=== PATIENT | female | born 1980 | race African-American/Black ===

== ENCOUNTER 2017-06-25 08:18 | Emergency (ER) | payer OTHER, SELFPAY ==
[2017-06-25 08:47] LABS: #Basophils 0.1 thou/uL (0.0-0.2); #Eosinphils 0.3 thou/uL (0.0-0.7); #Lymphocytes 2.4 thou/uL (1.20-3.40); #Monocytes 0.6 thou/uL (0.11-0.59); #Neutrophils 6.6 thou/uL (1.40-6.50); %Basophils 0.8 % (0.0-1.0); %Lymphocytes 24.2 % (21.0-51.0); %Monocytes 6.1 % (0.0-10.0); %Neutrophils 65.9 % (42.0-75.0); Mean Corpuscular HGB CONC 32.1 g/dL (32.0-36.0); Mean Corpuscular Hemoglobin 31.9 pg (27.0-31.0); Mean Corpuscular Volume 99.2 fl (81.0-99.0); Mean Platelet Volume 6.8 fL (7.4-10.4); Platelet Count 355 thou/uL (130-400); RBC Distribution Width 11.5 % (11.5-14.5); Red Blood Cell (RBC) Count 3.78 mill/uL (4.20-5.40)
[2017-06-25] MEDS ORDERED: Ketorolac Tromethamine 30 MG/ML VIAL ONE (08:53)
[2017-06-25 09:02] LABS: BHCG - Serum Negative (NEGATIVE); Pregs Control Bar Appear? YES (CONTROL BAR)
--- NOTE | 2017-06-25 09:02 | RAD ---
SINGLE VIEW OF THE CHEST: History: Midsternal chest pain, frontal headache for two days. FINDINGS: Single view of the chest shows a normal sized cardiomediastinal silhouette. There is no evidence of c onsolidation, mass, or pleural effusion. The bones are unremarkable. IMPRESSION: No evidence of acute cardiopulmonary disease. POS: [facility]
[2017-06-25 09:03] LABS: Pregs Control Background? CLEAR/WHITE (CLR/WHITE)
[2017-06-25 09:15] LABS: ALT (SGPT) 8 U/L (8-55); AST (SGOT) 9 U/L (5-34); Albumin 4.4 g/dL (3.5-5.0); Alkaline Phosphatase 81 U/L (40-150); Anion Gap 10 mmol/L (10-20); BUN (Urea Nitrogen) 11 mg/dL (7.0-18.7); Bilirubin, Total 0.4 mg/dL (0.2-1.2); CK (CPK) 112 U/L (29-168); Calc. Creatinine Clearance 0 mL/min (70-130); Calcium 9.6 mg/dL (7.8-10.44); Carbon Dioxide 24 mmol/L (22-29); Chloride 106 mmol/L (98-107); Estimated GFR-MDRD Greater than 90; Globulin 3.4 g/dL (2.4-3.5); Glucose 97 mg/dL (70-105); Lipase 24 U/L (8-78); Potassium 3.9 mmol/L (3.5-5.1); Protein, Total 7.8 g/dL (6.0-8.3); Sodium 136 mmol/L (136-145)
[2017-06-25 09:19] LABS: CKMB 1.1 ng/mL (0-6.6); Troponin I Less than 0.010 ng/mL (< 0.028)
--- NOTE | 2017-06-25 10:08 | CT ---
CT ANGIOGRAM OF THE CHEST: Date: 06-25-17 Comparison: None. History: Chest pain, assess for pulmonary embolism. Technique: Serial axial CT imaging is obtained at 2.5 mm intervals from thoracic inlet through upper abdomen with IV contrast using a CT angiogram protocol. Coronal and oblique sagittal 3D reformatted i maging obtained. FINDINGS: Imaged upper abdomen demonstrates splenic granulomata. The upper abdomen appears grossly unremarkable otherwise. There is no pleural, pericardial, or mediastinal fluid present. There is no filling defect identified within the main pulmonary trunk or main pulmonary artery. The lobar segmental and subsegmental pulmonary arteries demonstrate no evidence for filling defect. There is no pneumothorax noted. There is no endobronchial lesion identified. There is no axillary lymph adenopathy noted. No enlarged hilar or mediastinal nodes are seen. There is no worrisome lytic or blastic bone lesion identified. No discrete pulmonary parenchymal mass lesion or nodule seen. IMPRESSION: 1. No evidence for acute pulmonary embolism. POS: [facility]
[2017-06-25] MEDS ORDERED: ISOVUE-370 76%-LOCM 1 ML ONE (12:41)
== END 2017-06-25 10:30 | disposition home or self-care (01) ==
LOC: ERS 08:18
DX: J01.90 Acute sinusitis, unspecified (principal); F17.210 Nicotine dependence, cigarettes, uncomplicated
CPT/HCPCS: 71045; 71275; 80053; 82550; 82553; 83690; 84484; 84703; 85025; 85379; 93005; 96374; J1885

== ENCOUNTER 2017-07-19 05:16 | Emergency (ER) | payer SELFPAY ==
--- NOTE | 2017-07-19 08:48 | RAD ---
PA AND LATERAL VIEWS OF CHEST: Date: 07/19/17 HISTORY: Cough. FINDINGS: Comparison made with exam of 06/25/17. The heart size is borderline. The lungs are expanded without focal areas of consolidation, pneumothor ax, silviano pulmonary edema, or pleural effusions. No acute osseous abnormalities are seen. IMPRESSION: No acute process. POS: [facility]
== END 2017-07-19 07:27 | disposition home or self-care (01) ==
LOC: ERS 05:16
DX: J06.9 Acute upper respiratory infection, unspecified (principal); F17.210 Nicotine dependence, cigarettes, uncomplicated
CPT/HCPCS: 71046; 87804

== ENCOUNTER 2018-02-23 00:31 | Emergency (ER) | payer SELFPAY ==
[2018-02-23] MEDS ORDERED: Proparacaine 0.5% Opth 15 ML BOT ONE (00:51)
[2018-02-23] MEDS ORDERED: Fluorescein Opthalmic Strip ONE (00:51)
== END 2018-02-23 01:12 | disposition home or self-care (01) ==
LOC: ERS 00:31
DX: H11.002 Unspecified pterygium of left eye (principal); Z71.6 Tobacco abuse counseling; I10 Essential (primary) hypertension; F17.210 Nicotine dependence, cigarettes, uncomplicated
CPT/HCPCS: 99406

== ENCOUNTER 2018-03-12 21:59 | Emergency (ER) | payer SELFPAY ==
--- NOTE | 2018-03-12 23:20 | RAD ---
RIGHT WRIST THREE VIEWS: 03/12/18 HISTORY: Right wrist pain. FINDINGS: Scaphoid waist is intact. Small well corticated ossific avulsion adjacent to the ulnar styloid may re present an old injury. No acute fracture or dislocation. IMPRESSION: No acute osseous abnormalities are demonstrated. POS: [facility]
--- NOTE | 2018-03-12 23:21 | RAD ---
RIGHT HAND THREE VIEWS: 03/12/18 HISTORY: Right hand pain. FINDINGS: Fingers are held in persistent flexion on all images, limiting evaluation. Joint spaces are preserved . No acute fracture, dislocation, or aggressive osseous erosions. IMPRESSION: No acute osseous abnormalities are demonstrated. POS: [facility]
== END 2018-03-13 00:38 | disposition home or self-care (01) ==
LOC: ERS 21:59
DX: S63.501A Unspecified sprain of right wrist, initial encounter (principal); I10 Essential (primary) hypertension; F17.210 Nicotine dependence, cigarettes, uncomplicated; X50.1XXA Overexertion from prolonged static or awkward postures, initial encounter

== ENCOUNTER 2019-05-29 17:55 | Emergency (ER) | payer OTHER, SELFPAY ==
--- NOTE | 2019-05-29 18:28 | RAD ---
RIGHT KNEE FOUR VIEWS: 05/29/19 HISTORY: Right knee pain and swelling, fall yesterday. FINDINGS/IMPRESSION: There are postop changes of an ACL repair. Joint effusion is present. No acute fracture or dislocatio n is identified. There is chondrocalcinosis. POS: [facility]
== END 2019-05-29 19:18 | disposition home or self-care (01) ==
LOC: ERS 17:55
DX: M23.91 Unspecified internal derangement of right knee (principal); I10 Essential (primary) hypertension; Z87.891 Personal history of nicotine dependence; W01.0XXA Fall on same level from slipping, tripping and stumbling without subsequent striking against object, initial encounter

== ENCOUNTER 2019-09-06 08:52 | Emergency (ER) | payer SELFPAY ==
[2019-09-06] MEDS ORDERED: Ibuprofen 200 MG TAB ONE (09:08)
--- NOTE | 2019-09-06 11:29 | RAD ---
RIGHT KNEE 4 VIEWS: Date: 09/06/2019 HISTORY: Injury. COMPARISON: 05/29/2019. FINDINGS: Prior ACL repair. Fairly markedly distended suprapatellar recess region, evidence for large joint eff usion, with some progression from the prior study. No evidence for acute fracture or dislocation. IMPRESSION: Evidence for distended suprapatellar recess and associated joint effusion. Postop anterior cruciate l igament repair changes. No fracture or dislocation. If there is clinical concern for internal derangement or replaced ACL tendon disruption, nonemergent follow-up MRI is recommended. POS: [facility]
== END 2019-09-06 11:02 | disposition home or self-care (01) ==
LOC: ERS 08:52
DX: M23.91 Unspecified internal derangement of right knee (principal); I10 Essential (primary) hypertension; F17.210 Nicotine dependence, cigarettes, uncomplicated

== ENCOUNTER 2020-10-16 08:05 | Emergency (ER) | payer SELFPAY ==
[2020-10-16 09:26] LABS: #Basophils 0.1 thou/uL (0.0-0.2); #Eosinphils 0.2 thou/uL (0.0-0.7); #Lymphocytes 4.1 thou/uL (1.20-3.40); #Monocytes 1.1 thou/uL (0.11-0.59); #Neutrophils 8.5 thou/uL (1.40-6.50); %Basophils 0.6 % (0.0-1.0); %Eosinophils 1.3 % (0.0-10.0); %Lymphocytes 29.5 % (21.0-51.0); %Monocytes 7.8 % (0.0-10.0); %Neutrophils 60.8 % (42.0-75.0); Hemoglobin 12.8 g/dL (12.0-16.0); Mean Corpuscular Hemoglobin 32.1 pg (27.0-31.0); Mean Corpuscular Volume 97.4 fL (78.0-98.0); Mean Platelet Volume 7.5 fL (7.4-10.4); Platelet Count 313 thou/uL (130-400); RBC Distribution Width 12.2 % (11.5-14.5); Red Blood Cell (RBC) Count 3.98 mill/uL (4.20-5.40)
[2020-10-16 09:44] LABS: ALT (SGPT) 17 U/L (8-55); AST (SGOT) 12 U/L (5-34); Albumin 4.1 g/dL (3.5-5.0); Alkaline Phosphatase 71 U/L (40-110); Anion Gap 14 mmol/L (10-20); BUN (Urea Nitrogen) 9 mg/dL (7.0-18.7); Bilirubin, Total 0.3 mg/dL (0.2-1.2); Calc. Creatinine Clearance 0 mL/min (70-130); Calcium 9.5 mg/dL (7.8-10.44); Carbon Dioxide 22 mmol/L (22-29); Chloride 105 mmol/L (98-107); Globulin 3.1 g/dL (2.4-3.5); Glucose 99 mg/dL (70-105); Potassium 3.5 mmol/L (3.5-5.1); Protein, Total 7.2 g/dL (6.0-8.3); Sodium 137 mmol/L (136-145)
[2020-10-16 14:13] LABS: SARS-CoV-2 PCR by NAA Not Detected (NotDetected)
== END 2020-10-16 10:10 | disposition home or self-care (01) ==
LOC: ERS 08:05
DX: J06.9 Acute upper respiratory infection, unspecified (principal); Z20.822 Contact with and (suspected) exposure to COVID-19; Z79.899 Other long term (current) drug therapy; I10 Essential (primary) hypertension; F17.210 Nicotine dependence, cigarettes, uncomplicated
CPT/HCPCS: 36415; 71045; 80053; 83880; 84484; 85025; 87635; 93005; U0003; U0005

== ENCOUNTER 2020-11-24 14:38 | Emergency (ER) | payer SELFPAY ==
[2020-11-24] MEDS ORDERED: Ketorolac Tromethamine 30 MG/ML VIAL ONE (15:12)
[2020-11-24] MEDS ORDERED: Metoclopramide HCl 10 MG/2 ML VIAL ONE (15:12)
[2020-11-24] MEDS ORDERED: Metoclopramide 10 MG/10 ML UDCUP ONE (15:12)
[2020-11-24] MEDS ORDERED: Dexamethasone 10 MG/ML VIAL ONE (15:12)
[2020-11-24 15:35] LABS: #Basophils 0.1 thou/uL (0.0-0.2); #Eosinphils 0.4 thou/uL (0.0-0.7); #Lymphocytes 3.5 thou/uL (1.20-3.40); #Monocytes 0.8 thou/uL (0.11-0.59); #Neutrophils 6.7 thou/uL (1.40-6.50); %Basophils 0.8 % (0.0-1.0); %Eosinophils 3.1 % (0.0-10.0); %Lymphocytes 30.5 % (21.0-51.0); %Monocytes 6.8 % (0.0-10.0); %Neutrophils 58.8 % (42.0-75.0); Hemoglobin 12.6 g/dL (12.0-16.0); Mean Corpuscular HGB CONC 33.2 g/dL (32.0-36.0); Mean Corpuscular Hemoglobin 32.7 pg (27.0-31.0); Mean Corpuscular Volume 98.4 fL (78.0-98.0); Mean Platelet Volume 7.7 fL (7.4-10.4); Platelet Count 338 thou/uL (130-400); RBC Distribution Width 11.8 % (11.5-14.5); Red Blood Cell (RBC) Count 3.87 mill/uL (4.20-5.40); White Blood Cell (WBC) Count 11.4 thou/uL (4.8-10.8)
[2020-11-24 15:55] LABS: ALT (SGPT) 15 U/L (8-55); AST (SGOT) 13 U/L (5-34); Albumin 4.1 g/dL (3.5-5.0); Alkaline Phosphatase 76 U/L (40-110); Anion Gap 15 mmol/L (10-20); BUN (Urea Nitrogen) 10 mg/dL (7.0-18.7); Bilirubin, Total 0.2 mg/dL (0.2-1.2); Calc. Creatinine Clearance 0 mL/min (70-130); Calcium 9.3 mg/dL (7.8-10.44); Carbon Dioxide 23 mmol/L (22-29); Chloride 103 mmol/L (98-107); Globulin 3.5 g/dL (2.4-3.5); Glucose 123 mg/dL (70-105); Potassium 3.7 mmol/L (3.5-5.1); Protein, Total 7.6 g/dL (6.0-8.3); Sodium 137 mmol/L (136-145)
== END 2020-11-24 16:50 | disposition home or self-care (01) ==
LOC: ERS 14:38
DX: G43.909 Migraine, unspecified, not intractable, without status migrainosus (principal); I10 Essential (primary) hypertension; F17.210 Nicotine dependence, cigarettes, uncomplicated; Z79.899 Other long term (current) drug therapy
CPT/HCPCS: 80053; 84484; 85025; 93005; 96365; 96375; J1100; J1885; J2765

== ENCOUNTER 2022-05-24 09:25 | Emergency (ER) | payer SELFPAY ==
[2022-05-24] MEDS ORDERED: Ketorolac Tromethamine 10 MG TAB PO SCH (11:00)
[2022-05-24] MEDS ORDERED: Prochlorperazine Maleate 5 MG TAB PO SCH (11:00)
[2022-05-24 11:11] LABS: #Eosinphils 0.3 thou/uL (0.0-0.7); #Lymphocytes 3.4 thou/uL (1.20-3.40); #Monocytes 0.8 thou/uL (0.11-0.59); #Neutrophils 7.1 thou/uL (1.40-6.50); %Basophils 0.3 % (0.0-1.0); %Eosinophils 2.7 % (0.0-10.0); %Lymphocytes 29.4 % (21.0-51.0); %Monocytes 6.8 % (0.0-10.0); %Neutrophils 60.8 % (42.0-75.0); Hemoglobin 12.9 g/dL (12.0-16.0); Mean Corpuscular HGB CONC 33.5 g/dL (32.0-36.0); Mean Corpuscular Hemoglobin 33.2 pg (27.0-31.0); Mean Corpuscular Volume 99.1 fl (78.0-98.0); Mean Platelet Volume 7.3 fL (7.4-10.4); Platelet Count 361 10x3/uL (130-400); RBC Distribution Width 12.2 % (11.5-14.5); Red Blood Cell (RBC) Count 3.88 mill/uL (4.20-5.40); White Blood Cell (WBC) Count 11.7 10x3/uL (4.8-10.8)
[2022-05-24 11:31] LABS: ALT (SGPT) 11 U/L (8-55); AST (SGOT) 12 U/L (5-34); Albumin 4.3 g/dL (3.5-5.0); Alkaline Phosphatase 83 U/L (40-110); Anion Gap 11 mmol/L (10-20); BUN (Urea Nitrogen) 7 mg/dL (7.0-18.7); Bilirubin, Total 0.4 mg/dL (0.2-1.2); Calc. Creatinine Clearance 0 mL/min (70-130); Calcium 9.2 mg/dL (7.8-10.44); Carbon Dioxide 26 mmol/L (22-29); Chloride 105 mmol/L (98-107); Estimated GFR 92; Globulin 3.1 g/dL (2.4-3.5); Glucose 92 mg/dL (70-105); Magnesium 1.9 mg/dL (1.6-2.6); Potassium 3.6 mmol/L (3.5-5.1); Protein, Total 7.4 g/dL (6.0-8.3)
[2022-05-24 11:36] LABS: Sodium 138 mmol/L (136-145)
[2022-05-24] MEDS ORDERED: diphenhydrAMINE 50 MG/ML VIAL ONE (12:02)
[2022-05-24] MEDS ORDERED: Ketorolac Tromethamine 30 MG/ML VIAL ONE (12:02)
[2022-05-24] MEDS ORDERED: Metoclopramide HCl 10 MG/2 ML VIAL ONE (12:02)
== END 2022-05-24 14:16 | disposition home or self-care (01) ==
LOC: ERS 09:25
DX: R51.9 Headache, unspecified (principal); R07.89 Other chest pain; I10 Essential (primary) hypertension; Z79.899 Other long term (current) drug therapy
CPT/HCPCS: 36415; 70450; 71045; 80053; 83735; 83880; 84484; 85025; 93005; 96374; 96375; J1200; J1885; J2765

== ENCOUNTER 2024-02-02 17:36 | Emergency (ER) | payer BC, SELFPAY | END 2024-02-02 22:00 | disposition home or self-care (01) | LOC: ERS 17:36 | DX: M25.511 Pain in right shoulder (principal); R20.0 Anesthesia of skin; R20.2 Paresthesia of skin; I10 Essential (primary) hypertension; Z87.891 Personal history of nicotine dependence | CPT/HCPCS: 99283 ==